=== PATIENT | male | born 1980 | race Caucasian/White ===

== ENCOUNTER 2016-06-09 22:22 | Emergency (ER) | payer MEDICAID, OTHER ==
[2016-06-09] MEDS ORDERED: CLINDAMYCIN 150 MG CAPSULE PO STA (22:37)
[2016-06-09] MEDS ORDERED: HYDROcod/ACET 5/325 Prepack 6 PO STA (22:37)
[2016-06-09] MEDS ORDERED: HYDROcod/ACET 5/325 Prepack 6 PO ONE (22:41)
[2016-06-09] MEDS ORDERED: CLINDAMYCIN 150 MG CAPSULE PO ONE (22:41)
== END 2016-06-09 22:50 | disposition home or self-care (01) ==
DX: S61.441A Puncture wound with foreign body of right hand, initial encounter (principal); L03.113 Cellulitis of right upper limb; W22.8XXA Striking against or struck by other objects, initial encounter; Y99.0 Civilian activity done for income or pay; R03.0 Elevated blood-pressure reading, without diagnosis of hypertension
CPT/HCPCS: 99283; A9270

== ENCOUNTER 2017-01-12 17:27 | Emergency (ER) | payer SELFPAY ==
[2017-01-12 17:41] VITALS: BP 142/82
[2017-01-12] MEDS ORDERED: LIDOCAINE VISCOUS 2% 15 ML UDC MM STA (18:57)
[2017-01-12] MEDS ORDERED: LIDOCAINE VISCOUS 2% 15 ML UDC MM ONE (19:03)
[2017-01-12] MEDS ORDERED: SILVER SULFADIAZINE CREAM 25 GM TUBE TOP STA (19:41)
[2017-01-12] MEDS ORDERED: SILVER SULFADIAZINE CREAM 25 GM TUBE TOP ONE (19:46)
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
== END 2017-01-12 20:20 | disposition home or self-care (01) ==
LOC: ED 17:27
DX: T22.20XA Burn of second degree of shoulder and upper limb, except wrist and hand, unspecified site, initial encounter (principal); T31.0 Burns involving less than 10% of body surface; X19.XXXA Contact with other heat and hot substances, initial encounter; Y92.009 Unspecified place in unspecified non-institutional (private) residence as the place of occurrence of the external cause
CPT/HCPCS: 99282; 99283; A9270

== ENCOUNTER 2018-12-13 08:18 | Emergency (ER) | payer SELFPAY ==
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
--- NOTE | 2018-12-13 10:17 | XRAY Report ---
Reason: R hip pain Procedure Date: 12/13/2018 Accession Number: [id number] / [id number] Procedure: XR - Hip w/Pelvis 2-3V RT CPT Code: Final Report FULL RESULT: EXAM: RIGHT HIP RADIOGRAPHY EXAM DATE: 12/13/2018 09:59 AM. CLINICAL HISTORY: Right hip pain for 1 month. COMPARISON: None. TECHNIQUE: 2 views. FINDINGS: Bones: Normal. No fractures or bone lesion. Joints: There is an approximately 1 mm calcific density projecting along the lateral margin of the acetabular roof on the right. No dislocation. The hip joint space is preserved. Soft Tissues: Normal. No soft tissue swelling. IMPRESSION: Minimal subtle calcifications along the lateral aspect of the right acetabular roof, not a specific finding. RADIA
[2018-12-13] MEDS ORDERED: LIDOCAINE PATCH 5% TOP STA (10:28)
[2018-12-13] MEDS ORDERED: METHOCARBAMOL 500 MG TABLET PO STA (10:28)
[2018-12-13] MEDS ORDERED: CYCLOBENZAPRINE 10 MG TABLET PO STA (10:28)
[2018-12-13 10:40] VITALS: BP 146/105
== END 2018-12-13 10:40 | disposition home or self-care (01) ==
LOC: ED 08:18
DX: M54.41 Lumbago with sciatica, right side (principal)
CPT/HCPCS: 73502; 99283; 99284; A9270

== ENCOUNTER 2018-12-18 21:54 | Emergency (ER) | payer MEDICAID ==
[2018-12-18] MEDS ORDERED: CHERRY SYRUP 10 ML UDC PO ONE (22:22)
[2018-12-18] MEDS ORDERED: DEXAMETHASONE 10 MG/ML VIAL PO STA (22:22)
[2018-12-18] MEDS ORDERED: KETOROLAC 60 MG/2 ML VIAL IM STA (22:23)
--- NOTE | 2018-12-18 22:25 | ED Physician Documentation ---
PD HPI BACK PAIN - Stated complaint Stated Complaint: PAIN AND SWELLING RT HIP - Chief complaint Chief Complaint: General - History obtained from History obtained from: Patient - History of Present Illness Timing - onset: How many weeks ago (3) Timing - duration: Weeks (3) Timing - details: Gradual onset, Still present, Waxing and waning Location: Mid, Lower, Right Quality: Pain, Spasm, Sharp, Similar to prior episodes Associated symptoms: Numbness (To portions of the right leg). 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 He feels that his right hip is gone in and out of place. He has had symptoms similar to this previously over the past 10 years after an initial injury to his back lifting a pallet of paramjit material. He has had MRI previously with disc disease. He denies any urinary symptoms denies any incontinence denies any saddle anesthesia. He is ambulating well but is not able to go back to work. He was seen in the emergency department here and administered lidocaine patch and Flexeril. He has had some relief of pain with use of these but has persistent and shifting pains. Review of Systems Constitutional: denies: Fever Eyes: denies: Decreased vision Ears: denies: Ear pain Nose: denies: Congestion Throat: denies: Sore throat Cardiac: denies: Chest pain / pressure, Palpitations Respiratory: denies: Dyspnea, Cough GI: denies: Abdominal Pain, Nausea, Vomiting : denies: Dysuria, Frequency Skin: denies: Rash Musculoskeletal: reports: Back pain, Extremity pain, Joint pain. denies: Neck pain Neurologic: denies: Generalized weakness, Focal weakness, Numbness PD PAST MEDICAL HISTORY - Past Medical History Past Medical History: No - Past Surgical History Past Surgical History: No - Present Medications Home Medications: Ambulatory Orders Medication Instructions Recorded Confirmed Cyclobenzaprine [Flexeril] 10 mg PO TID PRN #20 tablet 12/13/18 Lidocaine Patch 5% [Lidoderm Patch] 1 patch TOP DAILY PRN #10 patch 12/13/18 Cyclobenzaprine [Flexeril] 10 mg PO TID PRN #20 tablet 12/18/18 Hydrocodone/Acetaminophen 1 - 2 each PO Q6H PRN #14 tablet 12/18/18 [Hydrocodon-Acetaminophen 5-325] - Allergies Allergies/Adverse Reactions: Allergies Allergy/AdvReac Type Severity Reaction Status Date / Time No Known Drug Allergies Allergy Verified 12/13/18 08:51 - Social History Does the pt smoke?: No Smoking Status: Never smoker Does the pt drink ETOH?: No Does the pt have substance abuse?: Yes - Immunizations Immunizations are current?: Yes - POLST Patient has POLST: No PD ED PE NORMAL - Vitals Vital signs reviewed: Yes - General General: Alert and oriented X 3, No acute distress, Well developed/nourished, Other (The patient is kinetic like maybe meth. ) - HEENT HEENT: Atraumatic, PERRL, EOMI - Neck Neck: Supple, no meningeal sign, No bony TTP - Respiratory Respiratory: No respiratory distress - Back Back: No CVA TTP, No spinal TTP, Other (There is pain to palpation of the paraspinous muscles of the back. There is referred pain to the hip with palpation of the back and pain into the lateral thigh with palpation of the abdomen which is not distended or swollen. 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, No motor deficit, No sensory deficit, Normal speech Eye Opening: Spontaneous Motor: Obeys Commands Verbal: Oriented GCS Score: 15 - Psych Psych: Normal mood, Normal affect Results - Vitals Vitals: Vital Signs - 24 hr 12/18/18 12/18/18 12/18/18 21:59 23:07 23:13 Temperature 37.0 C Heart Rate 114 H 107 H 101 H Respiratory 16 18 16 Rate Blood Pressure 138/110 H 131/86 H 128/84 H O2 Saturation 97 99 99 Oxygen O2 Source Room air PD MEDICAL DECISION MAKING - ED course Complexity details: reviewed old records, reviewed results, re-evaluated patient, considered differential, d/w patient ED course: 38 y/o male with a history of sciatica has an increase in his sciatica symptoms and he is administered decadron and toradal and we will place him on a short course of narcotic and muscle relaxant. Departure - Departure Disposition: 01 Home, Self Care Clinical Impression: Sciatica Qualifiers: Laterality: right Qualified Code(s): M54.31 - Sciatica, right side Condition: Stable Instructions: ED Sciatica Follow-Up: [facility] [Provider Group] Prescriptions: Cyclobenzaprine [Flexeril] 10 mg PO TID PRN #20 tablet PRN Reason: Spasms Hydrocodone/Acetaminophen [Hydrocodon-Acetaminophen 5-325] 1 - 2 each PO Q6H PRN #14 tablet PRN Reason: pain Discharge Date/Time: 12/18/18 23:13
[2018-12-18 23:14] VITALS: BP 128/84
== END 2018-12-18 23:13 | disposition home or self-care (01) ==
LOC: ED 21:54
DX: M54.41 Lumbago with sciatica, right side (principal)
CPT/HCPCS: 99282; 99284; A9270

== ENCOUNTER 2018-12-28 10:36 | Outpatient (CLI) | payer MEDICAID ==
--- NOTE | 2018-12-28 16:25 | XRAY Report ---
Reason: HIP PAIN Procedure Date: 12/28/2018 Accession Number: [id number] / [id number] Procedure: XRN - Lumbar Spine Complete CPT Code: Final Report FULL RESULT: EXAM: LUMBOSACRAL SPINE RADIOGRAPHY EXAM DATE: 12/28/2018 11:18 AM. CLINICAL HISTORY: Hip pain. COMPARISONS: HIP W/PELVIS 2-3V RT 12/13/2018 9:52 AM. TECHNIQUE: 5 views. FINDINGS: Alignment: Mild approximately 6.8 degree dextroconvex scoliosis centered about L2-L3. No spondylolisthesis. Bones: Five [id number] lumbar vertebral bodies are present. No fractures or bone lesions. Disks: Disk space heights are generally preserved with mild marginal osteophytosis at L3-L4. Facets: No degenerative changes. Sacroiliac Joints: Unremarkable. Soft Tissues: Normal. The visualized bowel gas pattern is normal. IMPRESSION: Mild scoliosis, possibly positional. RADIA
== END 2018-12-28 10:37 | disposition home or self-care (01) ==
LOC: DI.N 10:36
PROVIDERS: ATTEND Physician Assistant Medical
DX: M54.5 Low back pain (principal); M25.551 Pain in right hip; M41.9 Scoliosis, unspecified
CPT/HCPCS: 72110